=== PATIENT | female | born 1935 | race Caucasian/White ===

== ENCOUNTER 2017-05-03 18:32 | Inpatient (IN) | payer MEDICARE ==
[2017-05-03 19:06] LABS: ADD MAN DIFF? NO
[2017-05-03 19:10] LABS: BASO # 0.1 x10^3/uL (0.0-0.2); BASO % 1 % (0-3); BILIRUBIN,URINE NEGATIVE (NEG); CLARITY,URINE CLOUDY; COLOR,URINE YELLOW; EOS # 0.1 x10^3/uL (0.0-0.7); EOS % 1 % (0-3); GLUCOSE,URINE NEGATIVE (NEG); HEMATOCRIT 38.1 % (36.0-47.0); HEMOGLOBIN 12.9 g/dL (12.0-15.5); LYMPH # 2.1 x10^3/uL (1.0-4.8); LYMPH % 16 % (24-48); MEAN CORPUSCULAR HEMOGLOBIN 30 pg (25-35); MEAN CORPUSCULAR HGB CONC 34 g/dL (31-37); MEAN CORPUSCULAR VOLUME 88 fL (79-100); MONO # 1.2 x10^3/uL (0.0-1.1); MONO % 9 % (0-9); NEUT # 9.2 x10^3uL (1.8-7.7); NEUT % 73 % (31-73); NITRITE,URINE NEGATIVE (NEG); PLATELET COUNT 256 x10^3/uL (140-400); PROTEIN,URINE NEGATIVE (NEG-TRACE); RED BLOOD COUNT 4.31 x10^6/uL (3.50-5.40); RED CELL DISTRIBUTION WIDTH 13.4 % (11.5-14.5); WHITE BLOOD COUNT 12.7 x10^3/uL (4.0-11.0)
[2017-05-03 19:16] LABS: ANION GAP 9 (6-14); BLOOD UREA NITROGEN 10 mg/dL (7-20); BUN/CREATININE RATIO 13 (6-20); CALCIUM 9.8 mg/dL (8.5-10.1); CARBON DIOXIDE 27 mmol/L (21-32); CHLORIDE 103 mmol/L (98-107); CREATININE 0.8 mg/dL (0.6-1.0); GFR 68.7; GLUCOSE 115 mg/dL (70-99); POTASSIUM 3.9 mmol/L (3.5-5.1); SODIUM 139 mmol/L (136-145)
[2017-05-03] MEDS: IV NORMAL SALINE 1000ML BAG 1,000 ML IV (19:17)
[2017-05-03] MEDS: fentaNYL PF VIAL 100 MCG/2 ML VIAL IV ×3 (19:18→23:49)
[2017-05-03] MEDS: ONDANSETRON PF 4 MG/2 ML VIAL. IV (19:18)
[2017-05-03 19:22] LABS: ALBUMIN 3.3 g/dL (3.4-5.0); ALBUMIN/GLOBULIN RATIO 0.8 (1.0-1.7); ALK PHOS 78 U/L (46-116); ALT (SGPT) 12 U/L (14-59); AST (SGOT) 15 U/L (15-37); BACTERIA,URINE FEW /HPF (0-FEW); HYALINE CASTS, URINE OCCASIONAL /HPF; LIPASE 76 U/L (73-393); SQUAMOUS EPITHELIAL CELL,UR MOD /LPF; TOTAL BILIRUBIN 0.3 mg/dL (0.2-1.0); TOTAL PROTEIN 7.7 g/dL (6.4-8.2)
[2017-05-03] MEDS ORDERED: CONTRAST GIVEN MC (19:30)
[2017-05-03] MEDS: IOHEXOL 300 MG/ML 100ML VIAL. IV (19:34)
[2017-05-03] MEDS ORDERED: IV NORMAL SALINE 1000ML BAG 1,000 ML IV (20:44)
[2017-05-03] MEDS ORDERED: levOFLOXacin PER PHARMACY. MC (20:45)
[2017-05-03] MEDS ORDERED: BISACODYL 10 MG SUPP.RECT. PR (20:45)
[2017-05-03] MEDS ORDERED: PROCHLORPERAZINE 25 MG SUPP.RECT. PR (20:45)
[2017-05-03] MEDS ORDERED: MORPHINE SULFATE 2 MG/ML DISP.SYRIN. IV (20:45)
[2017-05-03] MEDS ORDERED: PROCHLORPERAZINE 10 MG/2 ML VIAL. IV (20:45)
[2017-05-03] MEDS ORDERED: ACETAMINOPHEN 325 MG TABLET. PO (20:45)
[2017-05-03] MEDS ORDERED: ONDANSETRON PF 4 MG/2 ML VIAL. IV (20:45)
[2017-05-03] MEDS: DOCUSATE SODIUM 100 MG CAPSULE. PO (21:30)
[2017-05-03] MEDS: ENOXAPARIN 40 MG/0.4 ML SYRINGE. SQ (21:37)
[2017-05-03] MEDS: CEFEPIME HCL 1 GM in IV NORMAL SALINE 50ML 50 ML IV (23:06)
[2017-05-03] MEDS: IV 1/2 NORMAL SALINE 1,000 ML IV (23:06)
[2017-05-04] MEDS: fentaNYL PF VIAL 100 MCG/2 ML VIAL IV ×2 (02:21→05:37)
[2017-05-04] MEDS: IV 1/2 NORMAL SALINE 1,000 ML IV ×2 (05:38→17:45)
[2017-05-04 06:19] LABS: ADD MAN DIFF? NO; BASO # 0.1 x10^3/uL (0.0-0.2); BASO % 1 % (0-3); EOS # 0.2 x10^3/uL (0.0-0.7); EOS % 2 % (0-3); HEMATOCRIT 33.8 % (36.0-47.0); HEMOGLOBIN 11.2 g/dL (12.0-15.5); LYMPH # 1.7 x10^3/uL (1.0-4.8); LYMPH % 17 % (24-48); MEAN CORPUSCULAR HEMOGLOBIN 30 pg (25-35); MEAN CORPUSCULAR HGB CONC 33 g/dL (31-37); MEAN CORPUSCULAR VOLUME 89 fL (79-100); MONO % 10 % (0-9); NEUT # 7.1 x10^3uL (1.8-7.7); NEUT % 71 % (31-73); PLATELET COUNT 215 x10^3/uL (140-400); RED BLOOD COUNT 3.79 x10^6/uL (3.50-5.40); RED CELL DISTRIBUTION WIDTH 13.3 % (11.5-14.5)
[2017-05-04 07:10] LABS: INR 1.2 (0.8-1.1); PROTHROMBIN TIME PATIENT 14.6 SEC (11.7-14.0)
[2017-05-04] MEDS: FLUoxetine HCL 20 MG CAPSULE PO (09:42)
[2017-05-04] MEDS: tiZANidine 4 MG TABLET. PO ×3 (09:42→21:04)
[2017-05-04] MEDS: oxyCODONE IR 5 MG TABLET PO ×2 (09:42→17:40)
[2017-05-04] MEDS: PANTOPRAZOLE 40 MG TABLET.DR. PO (09:42)
[2017-05-04] MEDS: DOCUSATE SODIUM 100 MG CAPSULE. PO ×2 (09:42→21:04)
[2017-05-04] MEDS: LACTOBACILLUS RHAMNOSUS GG 1 CAPSULE. PO ×2 (09:42→21:04)
[2017-05-04] MEDS: clonazePAM 1 MG TABLET PO ×2 (09:57→21:07)
[2017-05-04] MEDS: CEFEPIME HCL 1 GM in IV NORMAL SALINE 50ML 50 ML IV ×2 (09:59→21:04)
[2017-05-04] MEDS: IPRATRPIUM/ALBUTEROL 0.5/2.5MG 3 ML NEBU. NEB ×2 (11:01→19:15)
[2017-05-04] MEDS: SALIVA STIMULANT AGENT 44ML SPRAY BOTTLE. PO (11:04)
[2017-05-04] MEDS: MORPHINE SULFATE 4 MG/ML DISP.SYRIN. IV (14:41)
[2017-05-04] MEDS: ENOXAPARIN 40 MG/0.4 ML SYRINGE. SQ (21:00)
[2017-05-04] MEDS: ATORVASTATIN CALCIUM 10 MG TABLET. PO (21:04)
[2017-05-05] MEDS: IV 1/2 NORMAL SALINE 1,000 ML IV ×3 (02:31→13:55)
[2017-05-05] MEDS: tiZANidine 4 MG TABLET. PO ×3 (05:14→21:44)
[2017-05-05] MEDS: PANTOPRAZOLE 40 MG TABLET.DR. PO (05:14)
[2017-05-05] MEDS: oxyCODONE IR 5 MG TABLET PO ×4 (05:14→18:14)
[2017-05-05] MEDS: IPRATRPIUM/ALBUTEROL 0.5/2.5MG 3 ML NEBU. NEB ×2 (07:18→20:39)
[2017-05-05] MEDS: DOCUSATE SODIUM 100 MG CAPSULE. PO ×2 (08:33→20:54)
[2017-05-05] MEDS: FLUoxetine HCL 20 MG CAPSULE PO (08:33)
[2017-05-05] MEDS: CEFEPIME HCL 1 GM in IV NORMAL SALINE 50ML 50 ML IV ×2 (08:33→20:57)
[2017-05-05] MEDS: LACTOBACILLUS RHAMNOSUS GG 1 CAPSULE. PO ×2 (08:33→20:55)
[2017-05-05] MEDS: clonazePAM 1 MG TABLET PO (12:02)
[2017-05-05] MEDS: ATORVASTATIN CALCIUM 10 MG TABLET. PO (20:55)
[2017-05-05] MEDS: ENOXAPARIN 40 MG/0.4 ML SYRINGE. SQ (20:58)
[2017-05-06] MEDS: oxyCODONE IR 5 MG TABLET PO ×4 (03:06→21:45)
[2017-05-06] MEDS: tiZANidine 4 MG TABLET. PO ×3 (05:47→20:33)
[2017-05-06] MEDS: IPRATRPIUM/ALBUTEROL 0.5/2.5MG 3 ML NEBU. NEB ×2 (07:11→22:16)
[2017-05-06] MEDS: clonazePAM 1 MG TABLET PO ×2 (07:55→20:33)
[2017-05-06] MEDS: PANTOPRAZOLE 40 MG TABLET.DR. PO (07:55)
[2017-05-06] MEDS: DOCUSATE SODIUM 100 MG CAPSULE. PO ×2 (07:55→20:37)
[2017-05-06] MEDS: LACTOBACILLUS RHAMNOSUS GG 1 CAPSULE. PO ×2 (07:55→20:33)
[2017-05-06] MEDS: FLUoxetine HCL 20 MG CAPSULE PO (07:55)
[2017-05-06] MEDS: IV 1/2 NORMAL SALINE 1,000 ML IV ×2 (07:56→18:13)
[2017-05-06] MEDS: CEFEPIME HCL 1 GM in IV NORMAL SALINE 50ML 50 ML IV ×2 (07:56→20:33)
[2017-05-06] MEDS: ENOXAPARIN 40 MG/0.4 ML SYRINGE. SQ (20:33)
[2017-05-06] MEDS: ATORVASTATIN CALCIUM 10 MG TABLET. PO (20:33)
[2017-05-07] MEDS: oxyCODONE IR 5 MG TABLET PO (03:33)
[2017-05-07] MEDS: tiZANidine 4 MG TABLET. PO ×3 (04:27→23:15)
[2017-05-07] MEDS: PANTOPRAZOLE 40 MG TABLET.DR. PO (04:27)
[2017-05-07] MEDS: IV 1/2 NORMAL SALINE 1,000 ML IV ×2 (04:27→13:22)
[2017-05-07] MEDS: IPRATRPIUM/ALBUTEROL 0.5/2.5MG 3 ML NEBU. NEB ×2 (07:26→22:13)
[2017-05-07] MEDS: IOHEXOL 240 MG/ML 50ML VIAL. PO (08:30)
[2017-05-07] MEDS: IOHEXOL 300 MG/ML 100ML VIAL. IV (08:30)
[2017-05-07] MEDS: MORPHINE SULFATE 4 MG/ML DISP.SYRIN. IV ×2 (08:41→20:43)
[2017-05-07] MEDS: FLUoxetine HCL 20 MG CAPSULE PO (10:38)
[2017-05-07] MEDS: LACTOBACILLUS RHAMNOSUS GG 1 CAPSULE. PO ×2 (10:38→20:21)
[2017-05-07] MEDS: DOCUSATE SODIUM 100 MG CAPSULE. PO ×2 (10:38→20:31)
[2017-05-07] MEDS: CEFEPIME HCL 1 GM in IV NORMAL SALINE 50ML 50 ML IV ×2 (10:39→20:22)
[2017-05-07] MEDS: clonazePAM 1 MG TABLET PO (13:39)
[2017-05-07 16:27] LABS: ALBUMIN 2.7 g/dL (3.4-5.0); ALK PHOS 71 U/L (46-116); ALT (SGPT) 23 U/L (14-59); AST (SGOT) 43 U/L (15-37); DIRECT BILIRUBIN 0.2 mg/dL (0.0-0.2); TOTAL BILIRUBIN 0.5 mg/dL (0.2-1.0); TOTAL PROTEIN 6.6 g/dL (6.4-8.2)
[2017-05-07] MEDS: ATORVASTATIN CALCIUM 10 MG TABLET. PO (20:20)
[2017-05-07] MEDS: ENOXAPARIN 40 MG/0.4 ML SYRINGE. SQ (20:22)
[2017-05-08] MEDS: IV 1/2 NORMAL SALINE 1,000 ML IV ×2 (01:00→16:11)
[2017-05-08 05:17] LABS: ADD MAN DIFF? NO
[2017-05-08 05:31] LABS: BASO % 1 % (0-3); EOS # 0.1 x10^3/uL (0.0-0.7); EOS % 1 % (0-3); HEMATOCRIT 26.2 % (36.0-47.0); HEMOGLOBIN 8.8 g/dL (12.0-15.5); LYMPH % 16 % (24-48); MEAN CORPUSCULAR HEMOGLOBIN 30 pg (25-35); MEAN CORPUSCULAR HGB CONC 34 g/dL (31-37); MEAN CORPUSCULAR VOLUME 88 fL (79-100); MONO # 0.6 x10^3/uL (0.0-1.1); MONO % 9 % (0-9); NEUT # 4.5 x10^3uL (1.8-7.7); NEUT % 74 % (31-73); PLATELET COUNT 167 x10^3/uL (140-400); RED BLOOD COUNT 2.97 x10^6/uL (3.50-5.40); RED CELL DISTRIBUTION WIDTH 13.1 % (11.5-14.5); WHITE BLOOD COUNT 6.2 x10^3/uL (4.0-11.0)
[2017-05-08 05:54] LABS: ANION GAP 13 (6-14); BLOOD UREA NITROGEN 3 mg/dL (7-20); CALCIUM 7.1 mg/dL (8.5-10.1); CARBON DIOXIDE 19 mmol/L (21-32); CHLORIDE 96 mmol/L (98-107); CREATININE 0.4 mg/dL (0.6-1.0); GFR 152.8; GLUCOSE 67 mg/dL (70-99); SODIUM 128 mmol/L (136-145)
[2017-05-08 05:58] LABS: POTASSIUM 2.3 mmol/L (3.5-5.1)
[2017-05-08] MEDS: tiZANidine 4 MG TABLET. PO ×3 (06:20→21:52)
[2017-05-08] MEDS: POTASSIUM CHLORIDE 20 MEQ TABLET.ER. PO ×2 (06:21→16:30)
[2017-05-08] MEDS: IPRATRPIUM/ALBUTEROL 0.5/2.5MG 3 ML NEBU. NEB ×2 (07:20→20:08)
[2017-05-08] MEDS: DOCUSATE SODIUM 100 MG CAPSULE. PO ×2 (09:00→20:34)
[2017-05-08] MEDS: FLUoxetine HCL 20 MG CAPSULE PO (10:30)
[2017-05-08] MEDS: LACTOBACILLUS RHAMNOSUS GG 1 CAPSULE. PO ×2 (10:30→20:33)
[2017-05-08] MEDS: PANTOPRAZOLE 40 MG TABLET.DR. PO (10:30)
[2017-05-08] MEDS: CEFEPIME HCL 1 GM in IV NORMAL SALINE 50ML 50 ML IV ×2 (10:31→20:33)
[2017-05-08] MEDS ORDERED: POTASSIUM CHLORIDE 20 MEQ TABLET.ER. PO (11:00)
[2017-05-08] MEDS: oxyCODONE IR 5 MG TABLET PO (14:47)
[2017-05-08] MEDS: ATORVASTATIN CALCIUM 10 MG TABLET. PO (20:33)
[2017-05-08] MEDS: ENOXAPARIN 40 MG/0.4 ML SYRINGE. SQ (20:33)
[2017-05-08] MEDS: clonazePAM 1 MG TABLET PO (21:45)
[2017-05-09 05:27] LABS: ADD MAN DIFF? NO
[2017-05-09 05:32] LABS: BASO # 0.1 x10^3/uL (0.0-0.2); BASO % 1 % (0-3); EOS # 0.1 x10^3/uL (0.0-0.7); EOS % 1 % (0-3); HEMATOCRIT 36.4 % (36.0-47.0); HEMOGLOBIN 12.3 g/dL (12.0-15.5); LYMPH # 1.5 x10^3/uL (1.0-4.8); LYMPH % 16 % (24-48); MEAN CORPUSCULAR HEMOGLOBIN 30 pg (25-35); MEAN CORPUSCULAR HGB CONC 34 g/dL (31-37); MEAN CORPUSCULAR VOLUME 88 fL (79-100); MONO # 0.7 x10^3/uL (0.0-1.1); MONO % 8 % (0-9); NEUT # 7.1 x10^3uL (1.8-7.7); NEUT % 75 % (31-73); PLATELET COUNT 248 x10^3/uL (140-400); RED BLOOD COUNT 4.14 x10^6/uL (3.50-5.40); RED CELL DISTRIBUTION WIDTH 13.6 % (11.5-14.5); WHITE BLOOD COUNT 9.5 x10^3/uL (4.0-11.0)
[2017-05-09] MEDS: IV 1/2 NORMAL SALINE 1,000 ML IV ×3 (05:46→17:00)
[2017-05-09] MEDS: tiZANidine 4 MG TABLET. PO ×3 (05:46→20:50)
[2017-05-09 06:01] LABS: ANION GAP 13 (6-14); BLOOD UREA NITROGEN 4 mg/dL (7-20); CALCIUM 9.6 mg/dL (8.5-10.1); CARBON DIOXIDE 23 mmol/L (21-32); CHLORIDE 103 mmol/L (98-107); CREATININE 0.6 mg/dL (0.6-1.0); GFR 95.7; GLUCOSE 87 mg/dL (70-99); POTASSIUM 3.6 mmol/L (3.5-5.1); SODIUM 139 mmol/L (136-145)
[2017-05-09] MEDS: IPRATRPIUM/ALBUTEROL 0.5/2.5MG 3 ML NEBU. NEB ×2 (07:21→20:00)
[2017-05-09] MEDS: PANTOPRAZOLE 40 MG TABLET.DR. PO (07:30)
[2017-05-09] MEDS: FLUoxetine HCL 20 MG CAPSULE PO (08:00)
[2017-05-09] MEDS: ENOXAPARIN 40 MG/0.4 ML SYRINGE. SQ (08:13)
[2017-05-09] MEDS: DOCUSATE SODIUM 100 MG CAPSULE. PO ×2 (09:00→20:50)
[2017-05-09] MEDS: LACTOBACILLUS RHAMNOSUS GG 1 CAPSULE. PO ×2 (09:00→20:49)
[2017-05-09] MEDS: SINCALIDE 1.41 MCG in IV NORMAL SALINE 50ML 30 ML IV (09:23)
[2017-05-09] MEDS: LABETALOL 20 MG/4 ML DISP.SYRIN. IVP ×2 (11:35→11:42)
[2017-05-09] MEDS ORDERED: MIDAZOLAM HCL/PF 2 MG/2 ML VIAL. (14:15)
[2017-05-09] MEDS ORDERED: fentaNYL PF VIAL 100 MCG/2 ML VIAL (14:15)
[2017-05-09] MEDS ORDERED: LIDOCAINE WITH 8.4% SOD BICARB 3 ML DISP.SYRIN. (14:26)
[2017-05-09] MEDS: MIDAZOLAM HCL/PF 2 MG/2 ML VIAL. IV (15:00)
[2017-05-09] MEDS: fentaNYL PF VIAL 100 MCG/2 ML VIAL IV (15:00)
[2017-05-09] MEDS: LIDOCAINE WITH 8.4% SOD BICARB 3 ML DISP.SYRIN. IJ (15:01)
[2017-05-09] MEDS: oxyCODONE IR 5 MG TABLET PO ×2 (15:54→20:50)
[2017-05-09] MEDS: clonazePAM 1 MG TABLET PO (16:01)
[2017-05-09] MEDS: HYDROcodone/APAP 5/325MG 1 TAB TABLET PO (18:07)
[2017-05-09] MEDS: ATORVASTATIN CALCIUM 10 MG TABLET. PO (20:50)
[2017-05-10] MEDS: clonazePAM 1 MG TABLET PO ×2 (03:47→18:14)
[2017-05-10] MEDS: IV 1/2 NORMAL SALINE 1,000 ML IV ×2 (03:48→13:12)
[2017-05-10 04:36] LABS: ADD MAN DIFF? NO
[2017-05-10 04:48] LABS: BASO # 0.1 x10^3/uL (0.0-0.2); BASO % 1 % (0-3); EOS % 0 % (0-3); HEMATOCRIT 35.5 % (36.0-47.0); HEMOGLOBIN 11.8 g/dL (12.0-15.5); LYMPH % 8 % (24-48); MEAN CORPUSCULAR HEMOGLOBIN 29 pg (25-35); MEAN CORPUSCULAR HGB CONC 33 g/dL (31-37); MEAN CORPUSCULAR VOLUME 88 fL (79-100); MONO % 9 % (0-9); NEUT % 82 % (31-73); PLATELET COUNT 242 x10^3/uL (140-400); RED BLOOD COUNT 4.06 x10^6/uL (3.50-5.40); RED CELL DISTRIBUTION WIDTH 13.4 % (11.5-14.5); WHITE BLOOD COUNT 12.2 x10^3/uL (4.0-11.0)
[2017-05-10 05:23] LABS: ANION GAP 10 (6-14); BLOOD UREA NITROGEN 5 mg/dL (7-20); CALCIUM 9.4 mg/dL (8.5-10.1); CARBON DIOXIDE 26 mmol/L (21-32); CHLORIDE 104 mmol/L (98-107); CREATININE 0.7 mg/dL (0.6-1.0); GFR 80.1; GLUCOSE 124 mg/dL (70-99); POTASSIUM 3.2 mmol/L (3.5-5.1); SODIUM 140 mmol/L (136-145)
[2017-05-10] MEDS: tiZANidine 4 MG TABLET. PO ×3 (06:29→22:23)
[2017-05-10] MEDS: PANTOPRAZOLE 40 MG TABLET.DR. PO (06:29)
[2017-05-10] MEDS: IPRATRPIUM/ALBUTEROL 0.5/2.5MG 3 ML NEBU. NEB ×2 (08:19→20:27)
[2017-05-10] MEDS: LACTOBACILLUS RHAMNOSUS GG 1 CAPSULE. PO ×2 (08:35→21:06)
[2017-05-10] MEDS: FLUoxetine HCL 20 MG CAPSULE PO (08:35)
[2017-05-10] MEDS: DOCUSATE SODIUM 100 MG CAPSULE. PO ×2 (08:37→21:00)
[2017-05-10] MEDS: HYDROcodone/APAP 5/325MG 1 TAB TABLET PO ×2 (08:38→18:15)
[2017-05-10] MEDS: POTASSIUM CHLORIDE 20 MEQ TABLET.ER. PO (08:39)
[2017-05-10] MEDS: CEFEPIME HCL 1 GM in IV NORMAL SALINE 50ML 50 ML IV ×2 (13:00→21:05)
[2017-05-10] MEDS ORDERED: CEFEPIME HCL 1 GM in IV DEXTROSE 5% 50 ML IV (13:00)
[2017-05-10 19:48] LABS: LACTIC ACID 1.1 mmol/L (0.4-2.0)
[2017-05-10] MEDS: ATORVASTATIN CALCIUM 10 MG TABLET. PO (21:05)
[2017-05-10] MEDS: oxyCODONE IR 5 MG TABLET PO (21:06)
[2017-05-10 21:09] LABS: C DIFF BY PCR Negative (Negative)
[2017-05-10] MEDS: ENOXAPARIN 40 MG/0.4 ML SYRINGE. SQ (21:14)
[2017-05-11] MEDS: tiZANidine 4 MG TABLET. PO ×3 (05:51→22:00)
[2017-05-11] MEDS: IV 1/2 NORMAL SALINE 1,000 ML IV ×2 (05:53→13:16)
[2017-05-11 06:08] LABS: ADD MAN DIFF? NO
[2017-05-11 06:16] LABS: BASO % 1 % (0-3); EOS # 0.2 x10^3/uL (0.0-0.7); EOS % 3 % (0-3); HEMATOCRIT 30.9 % (36.0-47.0); HEMOGLOBIN 10.5 g/dL (12.0-15.5); LYMPH # 1.6 x10^3/uL (1.0-4.8); LYMPH % 20 % (24-48); MEAN CORPUSCULAR HEMOGLOBIN 30 pg (25-35); MEAN CORPUSCULAR HGB CONC 34 g/dL (31-37); MEAN CORPUSCULAR VOLUME 88 fL (79-100); MONO # 0.9 x10^3/uL (0.0-1.1); MONO % 12 % (0-9); NEUT # 5.2 x10^3uL (1.8-7.7); NEUT % 66 % (31-73); PLATELET COUNT 222 x10^3/uL (140-400); RED BLOOD COUNT 3.52 x10^6/uL (3.50-5.40); RED CELL DISTRIBUTION WIDTH 13.6 % (11.5-14.5)
[2017-05-11 06:42] LABS: ANION GAP 7 (6-14); BLOOD UREA NITROGEN 7 mg/dL (7-20); CALCIUM 9.4 mg/dL (8.5-10.1); CARBON DIOXIDE 27 mmol/L (21-32); CHLORIDE 104 mmol/L (98-107); CREATININE 0.6 mg/dL (0.6-1.0); GFR 95.7; GLUCOSE 108 mg/dL (70-99); POTASSIUM 3.4 mmol/L (3.5-5.1); SODIUM 138 mmol/L (136-145)
[2017-05-11] MEDS: PANTOPRAZOLE 40 MG TABLET.DR. PO (06:59)
[2017-05-11] MEDS: IPRATRPIUM/ALBUTEROL 0.5/2.5MG 3 ML NEBU. NEB ×2 (07:56→17:54)
[2017-05-11] MEDS: DOCUSATE SODIUM 100 MG CAPSULE. PO ×2 (08:23→20:45)
[2017-05-11] MEDS: FLUoxetine HCL 20 MG CAPSULE PO (08:23)
[2017-05-11] MEDS: oxyCODONE IR 5 MG TABLET PO ×3 (08:23→20:46)
[2017-05-11] MEDS: LACTOBACILLUS RHAMNOSUS GG 1 CAPSULE. PO ×2 (08:24→20:45)
[2017-05-11] MEDS: CEFEPIME HCL 1 GM in IV NORMAL SALINE 50ML 50 ML IV ×2 (08:24→20:47)
[2017-05-11] MEDS: clonazePAM 1 MG TABLET PO ×2 (08:24→20:45)
[2017-05-11] MEDS: ATORVASTATIN CALCIUM 10 MG TABLET. PO (20:45)
[2017-05-11] MEDS: ENOXAPARIN 40 MG/0.4 ML SYRINGE. SQ (20:46)
[2017-05-12] MEDS: oxyCODONE IR 5 MG TABLET PO ×3 (00:27→18:58)
[2017-05-12] MEDS: IV 1/2 NORMAL SALINE 1,000 ML IV ×2 (02:28→13:52)
[2017-05-12 06:01] LABS: ADD MAN DIFF? NO
[2017-05-12 06:13] LABS: BASO % 1 % (0-3); EOS # 0.3 x10^3/uL (0.0-0.7); EOS % 5 % (0-3); HEMATOCRIT 29.3 % (36.0-47.0); LYMPH # 1.5 x10^3/uL (1.0-4.8); LYMPH % 24 % (24-48); MEAN CORPUSCULAR HEMOGLOBIN 30 pg (25-35); MEAN CORPUSCULAR HGB CONC 34 g/dL (31-37); MEAN CORPUSCULAR VOLUME 88 fL (79-100); MONO # 0.8 x10^3/uL (0.0-1.1); MONO % 13 % (0-9); NEUT # 3.6 x10^3uL (1.8-7.7); NEUT % 58 % (31-73); PLATELET COUNT 214 x10^3/uL (140-400); RED BLOOD COUNT 3.32 x10^6/uL (3.50-5.40); RED CELL DISTRIBUTION WIDTH 13.8 % (11.5-14.5); WHITE BLOOD COUNT 6.3 x10^3/uL (4.0-11.0)
[2017-05-12] MEDS: PANTOPRAZOLE 40 MG TABLET.DR. PO (06:30)
[2017-05-12] MEDS: tiZANidine 4 MG TABLET. PO ×3 (06:30→22:15)
[2017-05-12 06:31] LABS: ALBUMIN 2.4 g/dL (3.4-5.0); ALBUMIN/GLOBULIN RATIO 0.7 (1.0-1.7); ALK PHOS 55 U/L (46-116); ALT (SGPT) 25 U/L (14-59); ANION GAP 3 (6-14); AST (SGOT) 26 U/L (15-37); BLOOD UREA NITROGEN 10 mg/dL (7-20); BUN/CREATININE RATIO 17 (6-20); CALCIUM 9.2 mg/dL (8.5-10.1); CARBON DIOXIDE 30 mmol/L (21-32); CHLORIDE 106 mmol/L (98-107); CREATININE 0.6 mg/dL (0.6-1.0); GFR 95.7; GLUCOSE 95 mg/dL (70-99); POTASSIUM 3.8 mmol/L (3.5-5.1); SODIUM 139 mmol/L (136-145); TOTAL BILIRUBIN 0.1 mg/dL (0.2-1.0); TOTAL PROTEIN 5.7 g/dL (6.4-8.2)
[2017-05-12] MEDS: IPRATRPIUM/ALBUTEROL 0.5/2.5MG 3 ML NEBU. NEB ×2 (07:39→19:39)
[2017-05-12] MEDS: LACTOBACILLUS RHAMNOSUS GG 1 CAPSULE. PO ×2 (09:00→22:14)
[2017-05-12] MEDS: DOCUSATE SODIUM 100 MG CAPSULE. PO ×2 (10:06→22:14)
[2017-05-12] MEDS: FLUoxetine HCL 20 MG CAPSULE PO (10:06)
[2017-05-12] MEDS: clonazePAM 1 MG TABLET PO ×2 (10:06→22:15)
[2017-05-12] MEDS: CEFEPIME HCL 1 GM in IV NORMAL SALINE 50ML 50 ML IV (10:07)
[2017-05-12 12:10] LABS: NEGATIVE OBC STREP NEG; POSITIVE OBC STREP POS
[2017-05-12] MEDS: NYSTATIN 100,000 UNITS/ML 5 ML ORAL.SUSP. SWSW ×3 (13:51→22:18)
[2017-05-12] MEDS: PIPERACILLIN/TAZOBACTAM 3.375 GM in IV NORMAL SALINE 50ML 50 ML IV ×2 (16:12→22:13)
[2017-05-12] MEDS: ATORVASTATIN CALCIUM 10 MG TABLET. PO (22:14)
[2017-05-12] MEDS: ENOXAPARIN 40 MG/0.4 ML SYRINGE. SQ (22:15)
[2017-05-13] MEDS: PIPERACILLIN/TAZOBACTAM 3.375 GM in IV NORMAL SALINE 50ML 50 ML IV ×4 (01:04→18:36)
[2017-05-13] MEDS: oxyCODONE IR 5 MG TABLET PO ×4 (03:53→21:11)
[2017-05-13 04:57] LABS: ADD MAN DIFF? NO
[2017-05-13 05:14] LABS: BASO % 1 % (0-3); EOS # 0.3 x10^3/uL (0.0-0.7); EOS % 5 % (0-3); HEMATOCRIT 31.5 % (36.0-47.0); HEMOGLOBIN 10.7 g/dL (12.0-15.5); LYMPH # 1.6 x10^3/uL (1.0-4.8); LYMPH % 25 % (24-48); MEAN CORPUSCULAR HEMOGLOBIN 30 pg (25-35); MEAN CORPUSCULAR HGB CONC 34 g/dL (31-37); MEAN CORPUSCULAR VOLUME 88 fL (79-100); MONO # 0.8 x10^3/uL (0.0-1.1); MONO % 12 % (0-9); NEUT # 3.7 x10^3uL (1.8-7.7); NEUT % 57 % (31-73); PLATELET COUNT 235 x10^3/uL (140-400); RED BLOOD COUNT 3.56 x10^6/uL (3.50-5.40); RED CELL DISTRIBUTION WIDTH 13.7 % (11.5-14.5); WHITE BLOOD COUNT 6.4 x10^3/uL (4.0-11.0)
[2017-05-13 05:47] LABS: ANION GAP 8 (6-14); BLOOD UREA NITROGEN 10 mg/dL (7-20); CALCIUM 9.6 mg/dL (8.5-10.1); CARBON DIOXIDE 28 mmol/L (21-32); CHLORIDE 105 mmol/L (98-107); CREATININE 0.7 mg/dL (0.6-1.0); GFR 80.1; GLUCOSE 98 mg/dL (70-99); POTASSIUM 3.7 mmol/L (3.5-5.1); SODIUM 141 mmol/L (136-145)
[2017-05-13] MEDS: PANTOPRAZOLE 40 MG TABLET.DR. PO (06:20)
[2017-05-13] MEDS: tiZANidine 4 MG TABLET. PO ×3 (06:20→21:04)
[2017-05-13] MEDS: IPRATRPIUM/ALBUTEROL 0.5/2.5MG 3 ML NEBU. NEB ×2 (07:19→19:31)
[2017-05-13] MEDS: NYSTATIN 100,000 UNITS/ML 5 ML ORAL.SUSP. SWSW ×4 (09:17→21:04)
[2017-05-13] MEDS: LACTOBACILLUS RHAMNOSUS GG 1 CAPSULE. PO ×2 (09:18→21:04)
[2017-05-13] MEDS: FLUoxetine HCL 20 MG CAPSULE PO (09:18)
[2017-05-13] MEDS: DOCUSATE SODIUM 100 MG CAPSULE. PO ×2 (09:18→21:04)
[2017-05-13] MEDS: IV 1/2 NORMAL SALINE 1,000 ML IV ×2 (09:19→21:12)
[2017-05-13] MEDS: ATORVASTATIN CALCIUM 10 MG TABLET. PO (21:04)
[2017-05-13] MEDS: ENOXAPARIN 40 MG/0.4 ML SYRINGE. SQ (21:05)
[2017-05-13] MEDS: clonazePAM 1 MG TABLET PO (21:11)
[2017-05-14 04:22] LABS: ADD MAN DIFF? NO
[2017-05-14 04:24] LABS: BASO # 0.1 x10^3/uL (0.0-0.2); BASO % 1 % (0-3); EOS # 0.2 x10^3/uL (0.0-0.7); EOS % 4 % (0-3); HEMATOCRIT 31.8 % (36.0-47.0); LYMPH # 1.7 x10^3/uL (1.0-4.8); LYMPH % 25 % (24-48); MEAN CORPUSCULAR HEMOGLOBIN 30 pg (25-35); MEAN CORPUSCULAR HGB CONC 35 g/dL (31-37); MEAN CORPUSCULAR VOLUME 88 fL (79-100); MONO # 0.8 x10^3/uL (0.0-1.1); MONO % 13 % (0-9); NEUT # 3.8 x10^3uL (1.8-7.7); NEUT % 58 % (31-73); PLATELET COUNT 238 x10^3/uL (140-400); RED BLOOD COUNT 3.62 x10^6/uL (3.50-5.40); RED CELL DISTRIBUTION WIDTH 13.7 % (11.5-14.5); WHITE BLOOD COUNT 6.6 x10^3/uL (4.0-11.0)
[2017-05-14 04:57] LABS: ALBUMIN 2.7 g/dL (3.4-5.0); ALBUMIN/GLOBULIN RATIO 0.9 (1.0-1.7); ALK PHOS 60 U/L (46-116); ALT (SGPT) 25 U/L (14-59); ANION GAP 7 (6-14); AST (SGOT) 21 U/L (15-37); BLOOD UREA NITROGEN 8 mg/dL (7-20); BUN/CREATININE RATIO 11 (6-20); CALCIUM 9.2 mg/dL (8.5-10.1); CARBON DIOXIDE 29 mmol/L (21-32); CHLORIDE 106 mmol/L (98-107); CREATININE 0.7 mg/dL (0.6-1.0); GFR 80.1; GLUCOSE 93 mg/dL (70-99); POTASSIUM 3.8 mmol/L (3.5-5.1); SODIUM 142 mmol/L (136-145); TOTAL BILIRUBIN 0.4 mg/dL (0.2-1.0); TOTAL PROTEIN 5.7 g/dL (6.4-8.2)
[2017-05-14] MEDS: PIPERACILLIN/TAZOBACTAM 3.375 GM in IV NORMAL SALINE 50ML 50 ML IV ×4 (05:30→17:42)
[2017-05-14] MEDS: PANTOPRAZOLE 40 MG TABLET.DR. PO (05:58)
[2017-05-14] MEDS: tiZANidine 4 MG TABLET. PO ×3 (05:58→21:23)
[2017-05-14] MEDS: oxyCODONE IR 5 MG TABLET PO ×2 (05:58→21:23)
[2017-05-14] MEDS: NYSTATIN 100,000 UNITS/ML 5 ML ORAL.SUSP. SWSW ×4 (08:13→21:23)
[2017-05-14] MEDS: FLUoxetine HCL 20 MG CAPSULE PO (08:15)
[2017-05-14] MEDS: LACTOBACILLUS RHAMNOSUS GG 1 CAPSULE. PO ×2 (08:16→21:23)
[2017-05-14] MEDS: DOCUSATE SODIUM 100 MG CAPSULE. PO ×2 (08:16→21:23)
[2017-05-14] MEDS: IPRATRPIUM/ALBUTEROL 0.5/2.5MG 3 ML NEBU. NEB ×2 (09:56→20:42)
[2017-05-14] MEDS: ONDANSETRON PF 4 MG/2 ML VIAL. IV ×2 (15:11→21:22)
[2017-05-14] MEDS: IV 1/2 NORMAL SALINE 1,000 ML IV ×2 (21:22→23:52)
[2017-05-14] MEDS: ATORVASTATIN CALCIUM 10 MG TABLET. PO (21:22)
[2017-05-14] MEDS: ENOXAPARIN 40 MG/0.4 ML SYRINGE. SQ (21:23)
[2017-05-14] MEDS: clonazePAM 1 MG TABLET PO (23:58)
[2017-05-15] MEDS: PIPERACILLIN/TAZOBACTAM 3.375 GM in IV NORMAL SALINE 50ML 50 ML IV ×4 (00:04→17:38)
[2017-05-15] MEDS: PANTOPRAZOLE 40 MG TABLET.DR. PO (06:34)
[2017-05-15] MEDS: tiZANidine 4 MG TABLET. PO ×3 (06:34→21:35)
[2017-05-15] MEDS: ONDANSETRON PF 4 MG/2 ML VIAL. IV (08:06)
[2017-05-15] MEDS: FLUoxetine HCL 20 MG CAPSULE PO (08:07)
[2017-05-15] MEDS: LACTOBACILLUS RHAMNOSUS GG 1 CAPSULE. PO ×2 (08:07→21:35)
[2017-05-15] MEDS: HYDROcodone/APAP 5/325MG 1 TAB TABLET PO ×2 (08:07→21:35)
[2017-05-15] MEDS: clonazePAM 1 MG TABLET PO ×2 (08:07→21:34)
[2017-05-15] MEDS: DOCUSATE SODIUM 100 MG CAPSULE. PO ×2 (08:08→21:34)
[2017-05-15] MEDS: NYSTATIN 100,000 UNITS/ML 5 ML ORAL.SUSP. SWSW ×4 (08:08→21:34)
[2017-05-15] MEDS: IPRATRPIUM/ALBUTEROL 0.5/2.5MG 3 ML NEBU. NEB ×2 (08:23→20:36)
[2017-05-15] MEDS: IV 1/2 NORMAL SALINE 1,000 ML IV (12:09)
[2017-05-15 20:51] LABS: POC GLUCOSE 90 mg/dL (70-99)
[2017-05-15] MEDS: ATORVASTATIN CALCIUM 10 MG TABLET. PO (21:35)
[2017-05-15] MEDS: ENOXAPARIN 40 MG/0.4 ML SYRINGE. SQ (21:35)
[2017-05-16] MEDS: IV 1/2 NORMAL SALINE 1,000 ML IV ×2 (00:22→11:55)
[2017-05-16] MEDS: PIPERACILLIN/TAZOBACTAM 3.375 GM in IV NORMAL SALINE 50ML 50 ML IV ×4 (00:22→18:25)
[2017-05-16] MEDS: PANTOPRAZOLE 40 MG TABLET.DR. PO (03:55)
[2017-05-16] MEDS: HYDROcodone/APAP 5/325MG 1 TAB TABLET PO (03:55)
[2017-05-16] MEDS: tiZANidine 4 MG TABLET. PO ×3 (06:06→21:40)
[2017-05-16] MEDS: IPRATRPIUM/ALBUTEROL 0.5/2.5MG 3 ML NEBU. NEB ×2 (06:58→20:06)
[2017-05-16] MEDS: LACTOBACILLUS RHAMNOSUS GG 1 CAPSULE. PO ×2 (08:35→21:36)
[2017-05-16] MEDS: oxyCODONE IR 5 MG TABLET PO (08:35)
[2017-05-16] MEDS: clonazePAM 1 MG TABLET PO (08:35)
[2017-05-16] MEDS: DOCUSATE SODIUM 100 MG CAPSULE. PO ×2 (08:35→21:00)
[2017-05-16] MEDS: FLUoxetine HCL 20 MG CAPSULE PO (08:35)
[2017-05-16] MEDS: NYSTATIN 100,000 UNITS/ML 5 ML ORAL.SUSP. SWSW ×4 (08:35→21:35)
[2017-05-16] MEDS: IOHEXOL 240 MG/ML 50ML VIAL. PO (13:00)
[2017-05-16] MEDS ORDERED: CONTRAST GIVEN MC (13:00)
[2017-05-16] MEDS: IOHEXOL 300 MG/ML 100ML VIAL. IV (13:00)
[2017-05-16] MEDS: ONDANSETRON PF 4 MG/2 ML VIAL. IV (18:31)
[2017-05-16] MEDS: ATORVASTATIN CALCIUM 10 MG TABLET. PO (21:35)
[2017-05-16] MEDS: guaiFENesin ORAL 200 MG/10 ML LIQUID. PO (21:35)
[2017-05-16] MEDS: DIPHENOXYLATE/ATROPINE TABLET. PO (21:36)
[2017-05-16] MEDS: ENOXAPARIN 40 MG/0.4 ML SYRINGE. SQ (21:36)
[2017-05-17] MEDS: PIPERACILLIN/TAZOBACTAM 3.375 GM in IV NORMAL SALINE 50ML 50 ML IV ×2 (00:45→06:07)
[2017-05-17] MEDS: oxyCODONE IR 5 MG TABLET PO ×2 (00:57→20:42)
[2017-05-17] MEDS: IV 1/2 NORMAL SALINE 1,000 ML IV ×2 (04:47→17:33)
[2017-05-17] MEDS: tiZANidine 4 MG TABLET. PO ×3 (06:07→20:42)
[2017-05-17] MEDS: PANTOPRAZOLE 40 MG TABLET.DR. PO (06:07)
[2017-05-17] MEDS: clonazePAM 1 MG TABLET PO (06:15)
[2017-05-17] MEDS: IPRATRPIUM/ALBUTEROL 0.5/2.5MG 3 ML NEBU. NEB ×2 (07:13→20:05)
[2017-05-17] MEDS: FLUoxetine HCL 20 MG CAPSULE PO (09:00)
[2017-05-17] MEDS: DOCUSATE SODIUM 100 MG CAPSULE. PO ×2 (09:00→20:42)
[2017-05-17] MEDS: NYSTATIN 100,000 UNITS/ML 5 ML ORAL.SUSP. SWSW ×4 (09:00→20:41)
[2017-05-17] MEDS: LACTOBACILLUS RHAMNOSUS GG 1 CAPSULE. PO ×2 (09:00→20:42)
[2017-05-17] MEDS: AMOXICILLIN/K CLAV 875/125MG TABLET. PO ×2 (12:02→20:42)
[2017-05-17] MEDS: ATORVASTATIN CALCIUM 10 MG TABLET. PO (20:42)
[2017-05-17] MEDS: ENOXAPARIN 40 MG/0.4 ML SYRINGE. SQ (20:43)
[2017-05-18] MEDS: oxyCODONE IR 5 MG TABLET PO ×2 (02:15→19:50)
[2017-05-18] MEDS: clonazePAM 1 MG TABLET PO ×2 (02:15→13:53)
[2017-05-18] MEDS: PANTOPRAZOLE 40 MG TABLET.DR. PO (05:47)
[2017-05-18] MEDS: tiZANidine 4 MG TABLET. PO ×3 (05:47→21:40)
[2017-05-18] MEDS: IPRATRPIUM/ALBUTEROL 0.5/2.5MG 3 ML NEBU. NEB ×2 (07:45→19:54)
[2017-05-18] MEDS: FLUoxetine HCL 20 MG CAPSULE PO (08:45)
[2017-05-18] MEDS: DOCUSATE SODIUM 100 MG CAPSULE. PO ×2 (08:45→21:40)
[2017-05-18] MEDS: AMOXICILLIN/K CLAV 875/125MG TABLET. PO ×2 (08:46→21:40)
[2017-05-18] MEDS: LACTOBACILLUS RHAMNOSUS GG 1 CAPSULE. PO ×2 (08:46→21:40)
[2017-05-18] MEDS: NYSTATIN 100,000 UNITS/ML 5 ML ORAL.SUSP. SWSW ×4 (08:46→21:40)
[2017-05-18] MEDS: IV 1/2 NORMAL SALINE 1,000 ML IV (08:51)
[2017-05-18] MEDS: ONDANSETRON PF 4 MG/2 ML VIAL. IV (19:58)
[2017-05-18] MEDS: ATORVASTATIN CALCIUM 10 MG TABLET. PO (21:40)
[2017-05-18] MEDS: ENOXAPARIN 40 MG/0.4 ML SYRINGE. SQ (21:43)
[2017-05-19] MEDS: IV 1/2 NORMAL SALINE 1,000 ML IV ×3 (02:47→23:52)
[2017-05-19] MEDS: HYDROcodone/APAP 5/325MG 1 TAB TABLET PO ×2 (03:48→18:44)
[2017-05-19 05:07] LABS: ADD MAN DIFF? NO
[2017-05-19 05:14] LABS: BASO % 1 % (0-3); EOS # 0.2 x10^3/uL (0.0-0.7); EOS % 3 % (0-3); HEMATOCRIT 27.9 % (36.0-47.0); HEMOGLOBIN 9.3 g/dL (12.0-15.5); LYMPH # 1.5 x10^3/uL (1.0-4.8); LYMPH % 27 % (24-48); MEAN CORPUSCULAR HEMOGLOBIN 30 pg (25-35); MEAN CORPUSCULAR HGB CONC 33 g/dL (31-37); MEAN CORPUSCULAR VOLUME 89 fL (79-100); MONO # 0.7 x10^3/uL (0.0-1.1); MONO % 12 % (0-9); NEUT # 3.1 x10^3uL (1.8-7.7); NEUT % 57 % (31-73); PLATELET COUNT 195 x10^3/uL (140-400); RED BLOOD COUNT 3.13 x10^6/uL (3.50-5.40); RED CELL DISTRIBUTION WIDTH 14.2 % (11.5-14.5); WHITE BLOOD COUNT 5.5 x10^3/uL (4.0-11.0)
[2017-05-19 05:46] LABS: ALBUMIN 2.6 g/dL (3.4-5.0); ALBUMIN/GLOBULIN RATIO 0.8 (1.0-1.7); ALK PHOS 53 U/L (46-116); ALT (SGPT) 20 U/L (14-59); ANION GAP 11 (6-14); AST (SGOT) 17 U/L (15-37); BLOOD UREA NITROGEN 6 mg/dL (7-20); BUN/CREATININE RATIO 9 (6-20); CALCIUM 9.1 mg/dL (8.5-10.1); CARBON DIOXIDE 25 mmol/L (21-32); CHLORIDE 105 mmol/L (98-107); CREATININE 0.7 mg/dL (0.6-1.0); GFR 80.1; GLUCOSE 95 mg/dL (70-99); POTASSIUM 3.7 mmol/L (3.5-5.1); SODIUM 141 mmol/L (136-145); TOTAL BILIRUBIN 0.3 mg/dL (0.2-1.0)
[2017-05-19] MEDS: tiZANidine 4 MG TABLET. PO ×3 (05:54→21:34)
[2017-05-19] MEDS: IPRATRPIUM/ALBUTEROL 0.5/2.5MG 3 ML NEBU. NEB ×2 (07:21→19:56)
[2017-05-19] MEDS: DOCUSATE SODIUM 100 MG CAPSULE. PO ×2 (09:00→21:00)
[2017-05-19] MEDS: AMOXICILLIN/K CLAV 875/125MG TABLET. PO ×2 (09:40→21:00)
[2017-05-19] MEDS: FLUoxetine HCL 20 MG CAPSULE PO (09:40)
[2017-05-19] MEDS: NYSTATIN 100,000 UNITS/ML 5 ML ORAL.SUSP. SWSW ×4 (09:40→21:34)
[2017-05-19] MEDS: LACTOBACILLUS RHAMNOSUS GG 1 CAPSULE. PO ×2 (09:40→21:33)
[2017-05-19] MEDS: PANTOPRAZOLE 40 MG TABLET.DR. PO (09:41)
[2017-05-19] MEDS: ATORVASTATIN CALCIUM 10 MG TABLET. PO (21:33)
[2017-05-19] MEDS: ENOXAPARIN 40 MG/0.4 ML SYRINGE. SQ (21:37)
[2017-05-20] MEDS: clonazePAM 1 MG TABLET PO (03:14)
[2017-05-20] MEDS: tiZANidine 4 MG TABLET. PO ×2 (06:44→14:04)
[2017-05-20] MEDS: LACTOBACILLUS RHAMNOSUS GG 1 CAPSULE. PO (07:41)
[2017-05-20] MEDS: AMOXICILLIN/K CLAV 875/125MG TABLET. PO (07:41)
[2017-05-20] MEDS: PANTOPRAZOLE 40 MG TABLET.DR. PO (07:41)
[2017-05-20] MEDS: FLUoxetine HCL 20 MG CAPSULE PO (07:42)
[2017-05-20] MEDS: NYSTATIN 100,000 UNITS/ML 5 ML ORAL.SUSP. SWSW ×3 (07:42→16:12)
[2017-05-20] MEDS: DOCUSATE SODIUM 100 MG CAPSULE. PO (07:43)
[2017-05-20] MEDS: IPRATRPIUM/ALBUTEROL 0.5/2.5MG 3 ML NEBU. NEB (08:03)
[2017-05-20] MEDS: CALCIUM CARBONATE 500 MG TAB.CHEW PO (12:19)
[2017-05-20] MEDS: IV 1/2 NORMAL SALINE 1,000 ML IV (13:12)
[2017-05-20] MEDS: HYDROcodone/APAP 5/325MG 1 TAB TABLET PO (14:04)
== END 2017-05-20 15:20 | DRG 871 ==
LOC: ER 18:32 → 4 NORTH 20:30
PROC: 0W9G30Z Drainage of Peritoneal Cavity with Drainage Device, Percutaneous Approach (ICD-10-PCS; principal; 2017-05-03)
DX: A41.9 Sepsis, unspecified organism (principal); K35.3 Acute appendicitis with localized peritonitis; K80.10 Calculus of gallbladder with chronic cholecystitis without obstruction; K82.1 Hydrops of gallbladder; K57.20 Diverticulitis of large intestine with perforation and abscess without bleeding; J44.9 Chronic obstructive pulmonary disease, unspecified; B37.9 Candidiasis, unspecified; J98.11 Atelectasis; N39.0 Urinary tract infection, site not specified; E78.5 Hyperlipidemia, unspecified; E87.6 Hypokalemia; F17.210 Nicotine dependence, cigarettes, uncomplicated; F32.9 Major depressive disorder, single episode, unspecified; F41.0 Panic disorder [episodic paroxysmal anxiety]; G89.29 Other chronic pain; I10 Essential (primary) hypertension; K21.9 Gastro-esophageal reflux disease without esophagitis; K40.90 Unilateral inguinal hernia, without obstruction or gangrene, not specified as recurrent; K44.9 Diaphragmatic hernia without obstruction or gangrene; Z16.11 Resistance to penicillins; K52.9 Noninfective gastroenteritis and colitis, unspecified; Z85.3 Personal history of malignant neoplasm of breast; Z88.0 Allergy status to penicillin; Z92.3 Personal history of irradiation
CPT/HCPCS: 36415; 49406; 74177; 78226; 80048; 80053; 80076; 81001; 82962; 83605; 83690; 85025; 85610; 87070; 87071; 87075; 87086; 87186; 87205; 87324; 87880; 93005; 94640; 94760; 96361; 96374; 96375; 97110-GP; 97116-GP; 97161-GP; 97166-GO; 97530-GP; 97535-GO; 99152; 99153; 99285; 99285-25; A4215; A9537; C1729; C1894; J0692; J1650; J1956; J2250; J2270; J2405; J2543; J2805; J3010; J3490; J7030; J7620; Q9966; Q9967